=== PATIENT | male | born 1955 | race Caucasian/White ===

== ENCOUNTER 2016-11-28 11:57 | Observation (INO) | payer OTHER ==
[~2016-11-28] VITALS: Ht 175.3 cm; Wt 78.0 kg
[2016-11-28 12:01] VITALS: BP 150/83; PULSE 64; RESP 18; TEMP 99.3; O2SAT 98
--- NOTE | 2016-11-28 12:16 | PD ---
HPI . Confusion Chief Complaint: Neuro Symptoms/ Deficits Time Seen by Provider: 12:07 Travel History International Travel<30 days: No Contact w/Intl Traveler<30days: No Traveled to known affect area: No History of Present Illness HPI This patient presents to us via private vehicle with chief complaint of confusion. History is obtained from a family member. This is reportedly the third episode of similar symptoms. He was evaluated twice previously at an outside hospital. The etiology of his symptoms was undetermined. Since family member states that they present us today because the etiology was undetermined at the other facility. He had the acute onset of symptoms at 10 AM. His symptoms are confusion and difficulty finding his words. He does not have slurred speech and his words make sense. He is just slow in getting the words out. The patient's family member states that his previous episode was attributed to alcohol abuse. She states that he has not had anything to drink in several weeks. [facility] Social History Tobacco Use: No Allergies-Medications (Allergen,Severity, Reaction): Coded Allergies: No Known Allergies (Unverified , 11/28/16) Review of Systems Except as stated in HPI: all other systems reviewed are Neg General / Constitutional: No: Fever, Chills Eyes: No: Diploplia, Blurred Vision HENT: No: Headaches, Lightheadedness Cardiovascular: No: Chest Pain or Discomfort Respiratory: No: Shortness of Breath Gastrointestinal: No: Nausea Neurologic: No: Weakness, Dizziness, Syncope, Focal Abnormalities, Tremor, Headache, Change in Mentation, Slurred Speech, Paresthesia, Incontinence, Seizures Physical Exam Narrative GENERAL: Patient is awake and alert and does not appear to be in any distress. SKIN: Warm and dry. HEAD: Atraumatic. Normocephalic. EYES: Pupils equal and round. Extraocular movements are intact. ENT: No nasal bleeding or discharge. Mucous membranes pink and moist. NECK: Trachea midline. Neck is supple. CARDIOVASCULAR: Regular rate and rhythm. Heart sounds are normal. RESPIRATORY: No accessory muscle use. Lungs are clear with full air movement throughout. GASTROINTESTINAL: Abdomen soft, non-tender, nondistended. MUSCULOSKELETAL: No obvious deformities. No edema. NEUROLOGICAL: Awake and alert. No obvious cranial nerve deficits. Motor grossly within normal limits. Negative pronator drift. Speech is clear with occasional difficulty finding his words. There is no slurring of the speech. PSYCHIATRIC: Appropriate mood and affect; insight and judgment normal. Data Data Last Documented VS Vital Signs Date Time Temp Pulse Resp B/P (MAP) Pulse Ox O2 Delivery O2 Flow Rate FiO2 11/28/16 12:01 99.3 64 18 150/83 (105) 98 Orders Orders Prothrombin Time / Inr (Pt) (11/28/16 12:07) Act Partial Throm Time (Ptt) (11/28/16 12:07) Complete Blood Count With Diff (11/28/16 12:07) Comprehensive Metabolic Panel (11/28/16 12:07) Drug Screen, Random Urine (11/28/16 12:07) Ct Brain W/O Iv Contrast(Rout) (11/28/16 12:07) Ecg Monitoring (11/28/16 12:07) Iv Access Insert/Monitor (11/28/16 12:07) Oximetry (11/28/16 12:07) Alcohol (Ethanol) (11/28/16 12:07) Labs Laboratory Tests Test 11/28/16 12:15 White Blood Count 10.0 TH/MM3 Red Blood Count 4.71 MIL/MM3 Hemoglobin 16.0 GM/DL Hematocrit 47.2 % Mean Corpuscular Volume 100.3 FL Mean Corpuscular Hemoglobin 34.0 PG Mean Corpuscular Hemoglobin Concent 33.9 % Red Cell Distribution Width 13.0 % Platelet Count 276 TH/MM3 Mean Platelet Volume 8.9 FL Neutrophils (%) (Auto) 70.1 % Lymphocytes (%) (Auto) 17.8 % Monocytes (%) (Auto) 10.4 % Eosinophils (%) (Auto) 1.5 % Basophils (%) (Auto) 0.2 % Neutrophils # (Auto) 7.0 TH/MM3 Lymphocytes # (Auto) 1.8 TH/MM3 Monocytes # (Auto) 1.0 TH/MM3 Eosinophils # (Auto) 0.1 TH/MM3 Basophils # (Auto) 0.0 TH/MM3 CBC Comment DIFF FINAL Differential Comment Prothrombin Time 10.7 SEC Prothromb Time International Ratio 1.0 RATIO Activated Partial Thromboplast Time 28.0 SEC Blood Urea Nitrogen 18 MG/DL Creatinine 1.14 MG/DL Random Glucose 76 MG/DL Total Protein 7.4 GM/DL Albumin 3.9 GM/DL Calcium Level 9.9 MG/DL Alkaline Phosphatase 106 U/L Aspartate Amino Transf (AST/SGOT) 22 U/L Alanine Aminotransferase (ALT/SGPT) 23 U/L Total Bilirubin 0.6 MG/DL Sodium Level 136 MEQ/L Potassium Level 4.6 MEQ/L Chloride Level 102 MEQ/L Carbon Dioxide Level 25.6 MEQ/L Anion Gap 8 MEQ/L Estimat Glomerular Filtration Rate 65 ML/MIN Urine Opiates Screen NEG Urine Barbiturates Screen NEG Urine Amphetamines Screen NEG Urine Benzodiazepines Screen NEG Urine Cocaine Screen NEG Urine Cannabinoids Screen POS Ethyl Alcohol Level LESS THAN 3 MG/DL MDM Medical Decision Making Medical Screen Exam Complete: Yes Emergency Medical Condition: Yes Differential Diagnosis Differential diagnosis includes but is not limited to TIA, CVA, brain tumor, migraine, anxiety Narrative Course This patient presents with intermittent confusion and difficulty finding his words. This is his third episode. He has been evaluated at an outside hospital the other 2 times this is happened. I have requested those records. He reports previous CT, MRI and neurological consultation. CT: There is mild volume loss. There is subtle hypodensity in the left frontal periventricular white or on image 22 which is nonspecific. Most likely this is on the basis of chronic microvascular ischemic disease however a subtle acute ischemic areas not excluded. No worrisome masses or hemorrhage. CBC & BMP Diagram 11/28/16 12:15 Total Protein 7.4, Albumin 3.9, Calcium Level 9.9, Alkaline Phosphatase 106, Aspartate Amino Transf (AST/SGOT) 22, Alanine Aminotransferase (ALT/SGPT) 23, Total Bilirubin 0.6 Alcohol level is negative, urine drug screen is positive for cannabinoids. This patient's workup here is negative. I am awaiting his records from the outside hospital. We still have not received records from the outside hospital. The patient continues to be confused and continues to have difficulty finding his words. He will be admitted to observation. Physician Communication Physician Communication Dr. Noel Diagnosis Primary Impression: Confusion Admitting Information Admitting Physician Requests: Observation Condition: Stable Sofi Bolaños MD Nov 28, 2016 12:16
[2016-11-28 12:30] LABS: BASOPHIL % 0.2 % (0.0-2.0); EOSINOPHIL # 0.1 TH/MM3 (0-0.4); EOSINOPHIL % 1.5 % (0.0-4.0); HEMATOCRIT 47.2 % (39.0-51.0); HEMO FLAGS DIFF FINAL; LYMPH % 17.8 % (9.0-44.0); LYMPHOCYTE # 1.8 TH/MM3 (1.0-4.8); MEAN CELL VOLUME 100.3 FL (80.0-100.0); MEAN CORPUSCULAR HGB CONC 33.9 % (32.0-36.0); MONO % 10.4 % (0.0-8.0); NEUT % 70.1 % (16.0-70.0); PLATELET COUNT 276 TH/MM3 (150-450); RED BLOOD COUNT 4.71 MIL/MM3 (4.50-5.90)
--- NOTE | 2016-11-28 12:44 | RADRPT ---
EXAM DATE/TIME: 11/28/2016 12:24 [facility] COMPARISON: No previous studies available for comparison. INDICATIONS : Altered mental status patient unable to articulate speech . RADIATION DOSE: 56.39 CTDIvol (mGy) MEDICAL HISTORY : Stroke. SURGICAL HISTORY : Non-responsive. ENCOUNTER: Initial ACUITY: 1 day PAIN SCALE: 0/10 LOCATION: Bilateral cranial TECHNIQUE: Multiple contiguous axial images were obtained of the head. Using automated exposure control and adj ustment of the mA and/or kV according to patient size, radiation dose was kept as low as reasonably a chievable to obtain optimal diagnostic quality images. DICOM format image data is available electro nically for review and comparison. FINDINGS: There is mild volume loss. There is subtle hypodensity in the left frontal periventricular white or o n image 22 which is nonspecific. Most likely this is on the basis of chronic microvascular ischemic d isease however a subtle acute ischemic areas not excluded. No worrisome masses or hemorrhage. CONCLUSION: Mild volume loss and nonspecific left frontal periventricular hypodensity as above. MRI may be helpfu l for further evaluation. Efrain Shaffer MD on November 28, 2016 at 12:42 Board Certified Radiologist. This report was verified electronically.
[2016-11-28 12:48] LABS: PROTHROMBIN TIME - PATIENT 10.7 SEC (9.8-11.6)
[2016-11-28 12:57] LABS: ALKALINE PHOSPHATASE 106 U/L (45-117); TOTAL BILIRUBIN ADULT 0.6 MG/DL (0.2-1.0)
[2016-11-28 12:58] LABS: ALT (GPT) 23 U/L (12-78); ANION GAP 8 MEQ/L (5-15); AST (GOT) 22 U/L (15-37); BICARBONATE 25.6 MEQ/L (21.0-32.0); BLOOD UREA NITROGEN 18 MG/DL (7-18); CHLORIDE 102 MEQ/L (98-107); GLOMERULAR FILTRATION RATE 65 ML/MIN (>89); POTASSIUM 4.6 MEQ/L (3.5-5.1); SODIUM (NA) 136 MEQ/L (136-145)
[2016-11-28 13:04] LABS: ALCOHOL LESS THAN 3 MG/DL (0-5)
== END 2016-11-28 16:16 | disposition home or self-care (01) ==
LOC: NEPC 11:57 → NEDA 15:15
PROVIDERS: ADMIT Family Medicine; ATTEND Family Medicine
DX: R41.82 Altered mental status, unspecified (principal)
CPT/HCPCS: 70450; 80053; 80307; 85025; 85610; 85730; 99285; G0378